=== PATIENT | female | born 1980 | race Caucasian/White ===

== ENCOUNTER → 2018-12-24 | Outpatient (CLI) | payer MEDICAID ==
--- NOTE | 2018-12-24 11:08 | US ---
EXAMINATION TYPE: US abdomen complete DATE OF EXAM: 12/24/2018 COMPARISON: NONE CLINICAL HISTORY: R14.0 Abdominal distension (gaseous R10.9 abd pain. Abdomen discomfort, NPO EXAM MEASUREMENTS: Liver Length: 16.4 cm Gallbladder Wall: 0.2 cm CBD: 0.5 cm CHD: 0.6 cm Spleen: 11.8 cm Right Kidney: 10.5 x 4.7 x 5.0 cm Left Kidney: 13.3 x 4.8 x 5.3 cm Extremely limited exam due to patient body habitus Pancreas: Tail obscured by overlying bowel Liver: Limited visualization. Appears echogenic and heterogenous most commonly related to hepatic s teatosis, limiting evaluation for underlying hepatic masses. Probable focal fatty sparing seen adjace nt to GB. Gallbladder: Multiple mobile echogenic foci seen with shadow, neck not visualized. Evidence for sonographic Elizabeth's sign: neg CBD: wnl CHD: wnl Spleen: wnl Right Kidney: Limited visualization Left Kidney: Appears larger in size compared to contralateral kidney Upper IVC: wnl Abd Aorta: No AAA visualized in portions seen The intrahepatic portion of the IVC and proximal abdominal aorta are within normal limits. Common tavia e duct is unremarkable. The visualized portions of the pancreas are homogenous. The spleen is unrem arkable. Kidneys are free of hydronephrosis. No renal lesions are seen. IMPRESSION: 1. Cholelithiasis without sonographic evidence of acute cholecystitis. 2. Hyperechoic hepatic echotexture most commonly relates to hepatic steatosis, correlate with liver f unction tests. Probable area of focal fatty sparing is also seen. 3. Slight asymmetric size of the kidneys, left greater than right. Partial obscuration of the right k idney and pancreas is seen due to overlying bowel gas.
== END | disposition home or self-care (01) ==
LOC: RADUSWWP 09:36
PROVIDERS: ATTEND Family Medicine
DX: K80.20 Calculus of gallbladder without cholecystitis without obstruction (principal); K76.0 Fatty (change of) liver, not elsewhere classified; R14.0 Abdominal distension (gaseous)
CPT/HCPCS: 76700

== ENCOUNTER → 2019-01-17 | Outpatient (CLI) | payer MEDICAID | END | disposition home or self-care (01) | LOC: LABWHC1 09:57 | PROVIDERS: ATTEND Anesthesiology | DX: Z01.818 Encounter for other preprocedural examination (principal) | CPT/HCPCS: 36415; 93005 ==

== ENCOUNTER 2019-01-20 11:13 | Day surgery (SDC) | payer MEDICAID ==
[2019-01-16 10:36] VITALS: BMI 53.1
[~2019-01-20 11:13] MED LIST: DEXAMETHASONE SOD PHOSPHATE 10 MG/ML 1 ML VIAL IV ONE; LACTATED RINGERS 1,000 ML IV SCH; MIDAZOLAM 2 MG/2 ML VIAL IV PRN; ONDANSETRON 4 MG/2 ML VIAL IVP ONE; SCOPOLAMINE 1.5MG/72HR PATCH TRANSDERM ONE; ceFAZolin 3 GM in SODIUM CHLORIDE 0.9% 100 ML IVPB ONE
[2019-01-20] MEDS ORDERED: LIDOCAINE 1% 20 ML VIAL (10MG/ML) FOR IV START INTRADERMA ONE (11:51)
[2019-01-20] MEDS ORDERED: NEOSTIGMINE 1 MG/ML 10 ML VIAL ONE (12:20)
[2019-01-20] MEDS ORDERED: ePHEDrine SULFATE/0.9% NACL/PF 50 MG/5 ML SYRINGE IV ONE (12:20)
[2019-01-20] MEDS ORDERED: ROCURONIUM BROMIDE 10 MG/ML 10 ML VIAL IV ONE (12:20)
[2019-01-20] MEDS ORDERED: KETOROLAC 30 MG/ML 1 ML VIAL ONE (12:20)
[2019-01-20] MEDS ORDERED: LIDOCAINE 1% INJ 10MG/ML (20 ML MDV) ONE (12:20)
[2019-01-20] MEDS ORDERED: PROPOFOL 10 MG/ML 20 ML VIAL IV ONE (12:20)
[2019-01-20] MEDS ORDERED: GLYCOPYRROLATE 0.2 MG/ML 2 ML VIAL ONE (12:20)
[2019-01-20] MEDS ORDERED: SUCCINYLCHOLINE CHLORIDE VIAL 200 MG/10 ML VIAL IV ONE (12:20)
[2019-01-20] MEDS ORDERED: MIDAZOLAM 2 MG/2 ML VIAL ONE (12:20)
[2019-01-20] MEDS ORDERED: fentaNYL (PF) 50 MCG/ML 2 ML AMP ONE (12:20)
[2019-01-20] MEDS ORDERED: SODIUM CHLORIDE 0.9% 100 ML with ceFAZolin 3,000 MG IV ONE ×2 (12:37)
[2019-01-20] MEDS ORDERED: BUPIVACAIN-EPI 0.25%-1:200,000 30 ML VIAL SQ ONE ×2 (12:39→12:47)
--- NOTE | 2019-01-20 13:44 | P.OP ---
Date of Procedure: 01/20/19 Preoperative Diagnosis: Cholelithiasis Postoperative Diagnosis: Cholelithiasis Procedure(s) Performed: Laparoscopic cholecystectomy Anesthesia: ZAHEER Surgeon: Emmy Wilcox Estimated Blood Loss (ml): 25 Pathology: other (Gallbladder) Condition: stable Disposition: PACU Indications for Procedure: The patient presented with symptomatic cholelithiasis Description of Procedure: The patient's taken the operative suite where she is prepped and draped in the usual sterile manner under general endotracheal anesthetic. A supraumbilical incision was made an optical trocar was placed into the abdominal cavity. Pneumoperitoneum was established with CO2 gas. Sites are chosen for accessory trochars and these were placed through small skin incisions. The abdominal and Pelvic contents were examined. The liver, diaphragm, large and small bowel were normal where they were seen. The gallbladder is grasped and retracted superiorly. Veronica's pouch is grasped and retracted laterally. The cystic duct and cystic artery are dissected free. They are triply clipped and cut. There was a stone impacted into Venkatesh's pouch. A 0 PDS Endoloop was used to secure the cystic duct stump. The gallbladder was then dissected free from the liver bed. Small bleeding points are controlled with electrocautery. The gallbladder is brought through the incision above the umbilicus. The skin incision and fascia both had to be extended. The gallbladder was opened and there were approximately 15 or more larger gallstones which were removed. The gallbladder was then able to be brought through the incision. Pneumoperitoneum was reestablished. The gallbladder fossa appeared hemostatic. The excess irrigant was suctioned out. The pneumoperitoneum was released. The trochars were removed. The fascia at the umbilicus was closed with 0 Vicryl. The skin incisions were closed with 4-0 Vicryl in a subcuticular manner. Steri-Strips and dressings were applied. She tolerated the procedure without difficulty and was taken recovery room in satisfactory condition. According to or personnel, all counts ARE correct. Plan - Discharge Summary Discharge Rx Participant: No New Discharge Prescriptions: New HYDROcodone/APAP 5-325MG [[place] 5-325] 1 - 2 tab PO Q4H PRN #15 tab PRN Reason: Pain No Action Omeprazole [PriLOSEC] 20 mg PO AC-BRKFST Labetalol [Trandate] 150 mg PO BID Venlafaxine HCl [Effexor XR] 150 mg PO DAILY Micronor Control 1 tab PO HS Ibuprofen [Motrin Ib] 200 mg PO DAILY PRN PRN Reason: Pain Discharge Medication List Ibuprofen [Motrin Ib] 200 mg PO DAILY PRN 01/16/19 [History] Labetalol [Trandate] 150 mg PO BID 01/16/19 [History] Micronor Control 1 tab PO HS 01/16/19 [History] Omeprazole [PriLOSEC] 20 mg PO AC-BRKFST 01/16/19 [History] Venlafaxine HCl [Effexor XR] 150 mg PO DAILY 01/16/19 [History] HYDROcodone/APAP 5-325MG [Randlett 5-325] 1 - 2 tab PO Q4H PRN #15 tab 01/20/19 [Rx] Follow up Appointment(s)/Referral(s): Emmy Wilcox DO [Doctor of Osteopathic Medicine] - 2 Weeks Activity/Diet/Wound Care/Special Instructions: Keep the current dressings on until . These may then be removed and you may shower. No tub baths or swimming for 1 week. Remove the little tapes on your scan in 1 week. Expect some bruising by the bellybutton. Ice to the incision for 24 hours. Follow a low-fat diet. No driving while taking pain medications. You may use Tylenol or Motrin instead of the pain medication. Call if questions or concerns.
[2019-01-20] MEDS ORDERED: LACTATED RINGERS 1,000 ML IV ONE ×2 (13:51)
[2019-01-20 14:06] VITALS: RESP 16
[2019-01-20] MEDS ORDERED: ONDANSETRON 4 MG/2 ML VIAL IVP ONE (14:30)
[2019-01-20] MEDS: HYDROmorphone 0.5 MG/0.5 ML SYRINGE IVP PRN ×2 (14:34→14:42)
[2019-01-20 14:51] VITALS: TEMP 97.8
[2019-01-20 15:50] VITALS: BP 114/74; PULSE 74
== END 2019-01-20 16:14 | disposition home or self-care (01) ==
LOC: OR 11:13
PROVIDERS: ATTEND Surgery
DX: K80.10 Calculus of gallbladder with chronic cholecystitis without obstruction (principal); I10 Essential (primary) hypertension; Z82.49 Family history of ischemic heart disease and other diseases of the circulatory system; Z79.899 Other long term (current) drug therapy; Z88.2 Allergy status to sulfonamides; E66.01 Morbid (severe) obesity due to excess calories; F32.9 Major depressive disorder, single episode, unspecified; F41.9 Anxiety disorder, unspecified; Z79.1 Long term (current) use of non-steroidal anti-inflammatories (NSAID); Z68.43 Body mass index [BMI] 50.0-59.9, adult
CPT/HCPCS: 81025; 88304; 47562; J2250; J0330; J1100; J2710; J2405; J0690; J2001; J3010; J1885; J2704; J1170